=== PATIENT | female | born 1980 | race Caucasian/White ===

== ENCOUNTER 2019-10-26 17:05 | Emergency (ER) | payer BC, SELFPAY ==
[2019-10-26] VITALS (8 sets, daily range): BP systolic 132–146; BP diastolic 80–93; PULSE 92–107; RESP 16–21; TEMP 36.4; O2SAT 95–98
[2019-10-26] MEDS: Famotidine 20 MG TAB 40 MG PO (18:25)
[2019-10-26] MEDS: Dexamethasone 4 MG TAB 8 MG PO (18:25)
[2019-10-26] MEDS: Acetaminophen 500 MG TAB 1000 MG PO (18:25)
[2019-10-26] MEDS: Albuterol HFA 8 GM 60 PUFF INH IH (18:27)
--- NOTE | 2019-10-26 18:31 | ED.GENADUL_ITS ---
Discharge Plan Disposition Patient Disposition: HOME Condition: Stable Discharge Details Chief Complaint: Chest/Rib Clinical Impression: Acute upper respiratory infection Primary Care Provider: None,None ED Provider: José Luis Luis Home Meds and New Rx's Prescriptions: New dexamethasone [dexamethasone] 4 MG tablet 8 mg PO DAILY Qty: 4 RF: 0 No Action aspirin 162.5 mg Capsule,Extended Release 24hr 162 mg PO RF: 0 cholecalciferol (vitamin D3) [Vitamin D3] 2,000 unit Tablet 1 unit RF: 0 magnesium amino acid chelate 100 mg Tablet PO RF: 0 Discharge Instructions Instructions: Upper Respiratory Infection (ED) Additional Instructions: 1. Drink plenty of fluids. 2. Continue all medications as prescribed. 3. Acetaminophen 1000mg every 4 hours (up to 5 time a day) as needed for fever or pain. 4. Albuterol 2 to 4 puffs every 4 hours as needed for difficulty breathing/cough. 5. Famotidine 20 to 40 mg twice a day as needed for reflux. Consider Mylanta 30 cc every 6 hours as needed, especially at bedtime. 6. If clinically improved with this regimen, may continue Decadron 8 mg daily for 2 more days starting tomorrow. Return to the Emergency Department (ED) if your condition worsens, does not improve as expected, or for ANY other concerns. Specifically, return if you have new or uncontrolled pain, worsening fever, difficulty breathing, vomiting, or are unable to drink fluids. Medical Decision Making 39-year-old woman who is 37 weeks by dates. Presents with progressive dyspnea and bilateral pleuritic chest pain associated with a upper respiratory infection/dry cough. In no distress on arrival with mild tachypnea and speaking in 4-5 word sentences. No evidence of RV strain, pericardial effusion, or primary thoracic disease by bedside ultrasound. Clinically improved after receiving albuterol, famotidine, acetaminophen, and Decadron. Reviewed diagnostic findings including low likelihood of significant PE. Discharged home with an albuterol MDI and a prescription for Decadron. Discharge plan to maximize beta agonist and antacids. She will follow-up with her PCP. Given usual and customary return instructions prior to discharge. Medical Records Medical records reviewed: Yes I reviewed the patient's medical records. Imaging Data Radiologic Study: Attestation: I personally reviewed and interpreted this imaging study as follows: Imaging: Ultrasound (Limited bedside cardiac and thoracic ultrasound:) My impression: No pericardial effusion, normal LVEF, no RV strain. Grossly dependent lung ferguson with no pericardial effusion, interstitial syndrome, or focal consolidation. HPI 39-year-old woman with an unremarkable past medical history who is 37 weeks by dates. Presents with progressive bilateral costal margin pain, a minimally productive cough, and increasing dyspnea. She reports having increased dyspnea associated with her at baseline and worsening reflux. Over the past week, she developed a dry cough and bilateral associated chest wall pain from her cough. Today, her dyspnea became more progressive and she noted more severe right chest pain. She presented to an urgent care where influenza testing was ordered and she had mild improvement in her dyspnea with an albuterol nebulizer.. However she was referred for ED management without another imaging or intervention. On arrival, she is in no distress, speaking in 4-5 word sentences, and notes bilateral pleuritic chest pain with inspiration and cough. She denies palpitations or anterior chest pain, abdominal pain, or atypical lower extremity pain or swelling. 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 She has had evaluation including sonographic evaluation of an IUP. She denies history of VTE. General Date/Time Provider Initiated Documentation: 10/26/19 17:23 . Related Data Home Medications Medication Instructions Recorded Confirmed aspirin 162 mg PO 10/26/19 cholecalciferol (vitamin D3) 1 unit 10/26/19 [Vitamin D3] dexamethasone 8 mg PO DAILY #4 tab 10/26/19 magnesium amino acid chelate mg PO 10/26/19 Previous Rx's Medication Instructions Recorded dexamethasone 8 mg PO DAILY #4 tab 10/26/19 Allergies Allergy/AdvReac Type Severity Reaction Status Date / Time No Known Allergies Allergy Unverified 10/26/19 17:22 General Stated Complaint: Chest/Rib SUZY: 3 Review of Systems All systems reviewed & are unremarkable except as noted in HPI and below PFSH Social History Do you feel safe in your relationship?: Yes Exam Narrative Exam Narrative: Nursing note and vital signs have been reviewed and noted. GENERAL: alert, active, no acute distress, well -hydrated, well-nourished HEENT: atraumatic/normocephalic, PERRLA, EOMI, conjunctiva clear, external ears/canals normal, nasal mucosa normal NECK: supple, full range of motion, no mass, normal lymphadenopathy, no thyromegaly CARDIOVASCULAR: RRR, no murmurs, nl pulses, no edema PULMONARY: Mild tachypnea, speaking in 4-5 word sentences, no audible wheezing or stridor, nl breath sounds with no focal deficit. no chest wall tenderness ABDOMEN: soft, non-tender, no mass, no organomegaly; 37-week fundus palpable EXTREMITY: normal muscle tone, all joints with FROM, no deformity or tenderness SKIN: no exanthem appreciated NEURO: gross motor exam normal, normal stance and gait PSYCH: alert and oriented, Course Vital Signs Vital signs: Vital Signs Temperature 97.5 F L 10/26/19 17:15 Pulse 104 H 10/26/19 17:15 Respiratory Rate 18 10/26/19 17:15 Blood Pressure 132/80 10/26/19 17:15 Pulse Oximetry 98 10/26/19 17:15 Temperature 97.5 F L 10/26/19 17:15 Temperature Source Temporal Artery Scan 10/26/19 17:15 Pulse 104 H 10/26/19 17:15 Respiratory Rate 18 10/26/19 17:15 Respiratory Effort 10/26/19 17:34 Respiratory Pattern Normal 10/26/19 17:34 Blood Pressure 132/80 10/26/19 17:15 Blood Pressure Position Sitting 10/26/19 17:15 Pulse Oximetry 98 10/26/19 17:15 Oxygen Delivery Method Room Air 10/26/19 17:15 Oxygen Flow Rate 0 10/26/19 17:15 Pain Level 2 10/26/19 18:25
[2019-10-26] MEDS: Inhaler, Assist Device 1 EACH MC (18:34)
== END 2019-10-26 18:40 | disposition home or self-care (01) ==
PROVIDERS: Emergency Provider Emergency Medicine
DX: J06.9 Acute upper respiratory infection, unspecified (principal); R07.81 Pleurodynia; R06.82 Tachypnea, not elsewhere classified; Z3A.37 37 weeks gestation of pregnancy
CPT/HCPCS: 99284; 99283; J8540

== ENCOUNTER 2020-06-21 15:02 | Outpatient (REF) | payer BC, SELFPAY ==
[2020-06-25 17:00] LABS: Patient Race White; SARS-CoV-2 RNA Undetected (Undetected); SARS-CoV-2 Specimen Source Nasal
== END 2020-06-21 15:22 ==
LOC: NCHCN 15:02
PROVIDERS: PCP Family Medicine; Visit Provider Nurse Practitioner Family
DX: J02.9 Acute pharyngitis, unspecified (principal)
CPT/HCPCS: U0003

== ENCOUNTER 2020-09-26 18:16 | Outpatient (REF) | payer BC, SELFPAY ==
--- NOTE | 2020-09-26 15:15 | PAPFT_PTH ---
PATIENT: Alfreda Enriquez LOC: [facility]#:[id number] AGE/SX: 40/F ROOM: RE09/26/[address]: Stephanie Hansen : 1980 BED: DIS: 09/26/2020 SPEC #: [id number] RECD: 09/27/20 13:01 STATUS: VERÓNICA REDaniela #: [id number] WILEY: 09/26/20 15:[address]: Stephanie Hansen DEPT: [facility] Cytology RECD BY: Jody Ga Tissues: 1 - CX/ENDOCX FOR PAP SMEARS Procedures: PAP THIN PREP/UVM Screening HPV DNA PROBE Comments: [id number] (CHLAMYDIA/GC)
[2020-09-26 19:53] LABS: Bilirubin Negative (Negative); Blood Negative (Negative); Clarity Clear (Clear); Glucose Negative (Negative); Ketones Negative (Negative); Leukocyte Esterase Negative (Negative); Nitrite Negative (Negative); Urobilinogen 0.2 EU/dL (Up TO 0.2)
[2020-09-26 20:40] LABS: Hemoglobin A1C 5.3 % (<5.7)
[2020-09-28 14:59] LABS: Chlamydia Result Negative (Negative); GC Result Negative (Negative)
== END 2020-09-26 18:36 ==
LOC: NCHCN 18:16
PROVIDERS: PCP Family Medicine; Visit Provider Family Medicine
DX: Z00.00 Encounter for general adult medical examination without abnormal findings (principal); R14.0 Abdominal distension (gaseous); N39.3 Stress incontinence (female) (male); Z13.1 Encounter for screening for diabetes mellitus; Z83.3 Family history of diabetes mellitus; Z11.3 Encounter for screening for infections with a predominantly sexual mode of transmission; Z12.4 Encounter for screening for malignant neoplasm of cervix; Z11.51 Encounter for screening for human papillomavirus (HPV)
CPT/HCPCS: 87491; 87591; 88142; 81003; 83036; 87624

== ENCOUNTER 2021-03-12 03:24 | Outpatient (RCR) | payer BC, SELFPAY ==
--- NOTE | 2021-03-12 16:00 | HOLTER_ITS ---
APPROVED REPORT Conclusion This is a 48-hour monitor ordered for indication of palpitations. ???Patient was in normal sinus rhythm with majority of the recording with an average heart rate of 87 bpm. ???There are no episodes of ventricular tachycardia and rare PVCs. ???There are no episodes of supraventricular tachycardia and rare PACs. ???There are no episodes of atrial fibrillation, no pauses greater than 3 seconds no evidence of high -grade heart block. ???There were 2 patient triggered events neither of which were associated with arrhythmia
== END 2021-04-10 23:59 | disposition home or self-care (01) ==
LOC: RT 03:24
PROVIDERS: PCP Family Medicine; Visit Provider Family Medicine
DX: R00.2 Palpitations (principal)
CPT/HCPCS: 93225; 93226

== ENCOUNTER 2021-11-27 15:49 | Outpatient (REF) | payer BC, SELFPAY ==
[2021-11-27 20:07] LABS: Calculated LDL 99 mg/dL (<100); Cholesterol 182 mg/dL (<200); HDL Cholesterol 73 mg/dL (40-60); Triglyceride 50 mg/dL (<150)
[2021-11-29 10:39] LABS: Hepatitis C Ab w Rflx HCV PCR Negative (Negative)
== END 2021-11-27 15:50 | disposition home or self-care (01) ==
LOC: NCHCN 15:49
PROVIDERS: PCP Family Medicine; Visit Provider Family Medicine
DX: R51.9 Headache, unspecified (principal); Z00.00 Encounter for general adult medical examination without abnormal findings
CPT/HCPCS: 80061; 86803

== ENCOUNTER 2021-12-10 00:20 | Outpatient (CLI) | payer BC, SELFPAY ==
--- NOTE | 2021-12-10 11:29 | DI.MAMMO_ITS ---
Exam(s) MAMMO SCREENING EXAM: MAMMO SCREENING CLINICAL HISTORY: SCREENING, Z12.31; FAMILY H/O BREAST CA, Z80.3 TECHNIQUE: Bilateral full field digital CC and MLO mammographic images were obtained with 3D tomosyn thesis and utilizing computer aided detection (CAD). COMPARISON: Available for comparison. FINDINGS: Masses/Architectural Distortion: None seen. Microcalcifications: No suspicious pleomorphic-type are seen. Skin Thickening/Nipple Retraction: None. IMPRESSION: 1. No significant interval change with no specific features of malignancy noted. 2. Unless there is more urgent need, screening mammography is recommended, as per [employer] guidelines. BI-RADS Category 1 - Negative Breast Density - Category C - Heterogeneously dense Breast density category C or D implies that the patient has dense breast tissue. Dense breast tissue is very common and is not abnormal but dense breast tissue can make it harder to find cancer on a ma mmogram. Also, dense breast tissue may increase their breast cancer risk. This information about the result of the mammogram report was provided to the patient to raise their awareness. Use this report when you speak with the patient about their risks for breast cancer, which includes their family hist ory. At that time, you may recommend for more screening tests (Ultrasound or MRI) as they might be us eful based on their risk. A negative radiographic report should not delay biopsy if a dominant or clinically suspicious mass is present. Up to ten percent of cancers are not identified on mammography. A negative report may reinforce clinical impression. Adenosis and dense breasts may obscure an underlying neoplasm. False positive reports average 6 to 10%. Patient will receive a letter notifying them of these results.
== END 2021-12-10 00:40 ==
PROVIDERS: PCP Family Medicine; Visit Provider Family Medicine
DX: Z12.31 Encounter for screening mammogram for malignant neoplasm of breast (principal); Z80.3 Family history of malignant neoplasm of breast
CPT/HCPCS: 77063; 77067

== ENCOUNTER 2022-12-15 00:57 | Outpatient (CLI) | payer BC, SELFPAY ==
--- NOTE | 2022-12-15 | DI.RAD_ITS ---
Exam(s) XR SACROILIAC JOINTS EXAM: XR SACROILIAC JOINTS CLINICAL HISTORY: PAIN, M54.59. TECHNIQUE: 2D digital imaging was performed. COMPARISON: No exams were available for comparison FINDINGS: Bones: No fracture is present. No bony destructive lesion is seen. Alignment is satisfactory. SI Joint: No fusion, erosions or sclerosis is seen. Minimal degenerative changes. Soft Tissue: Normal. IMPRESSION: Minimal degenerative changes of the SI Joints. DATA REPOSITORY: RADIATION DOSE DELIVERED:
--- NOTE | 2022-12-15 | DI.RAD_ITS ---
Exam(s) XR LUMBAR SPINE COMPLETE EXAM: XR LUMBAR SPINE COMPLETE CLINICAL HISTORY: LOW BACK PAIN, M54.59. TECHNIQUE: 2D digital imaging was performed. Five views. COMPARISON: No exams were available for comparison FINDINGS: BONES: No fracture or destructive lesion. Vertebral body heights are maintained. Mild facet hypertro phy identified at L4-5 and L5-S1.. DISKS: Intervertebral disc spaces are maintained. ALIGNMENT: Lumbar spinal alignment is within normal limits. SOFT TISSUE: Normal. IMPRESSION: Mild facet degenerative changes at L4-5 and L5-S1. DATA REPOSITORY: RADIATION DOSE DELIVERED:
== END 2022-12-15 01:17 ==
LOC: DI 00:58
PROVIDERS: PCP Family Medicine; Visit Provider Family Medicine
DX: M53.3 Sacrococcygeal disorders, not elsewhere classified (principal); M54.59 Other low back pain; M47.817 Spondylosis without myelopathy or radiculopathy, lumbosacral region
CPT/HCPCS: 72110; 72202